=== PATIENT | female | born 1980 | race Caucasian/White ===

== ENCOUNTER → 2020-02-21 11:05 | Outpatient (BNVA) | payer MEDICAID, SELFPAY | PROVIDERS: Family Provider Family Medicine; PCP Family Medicine; Visit Provider Emergency Medicine | DX: Z20.828 Contact with and (suspected) exposure to other viral communicable diseases (principal); R68.89 Other general symptoms and signs; R11.0 Nausea | CPT/HCPCS: 87635 ==